=== PATIENT | male | born 1985 | race Caucasian/White ===

== ENCOUNTER → 2017-02-07 | Outpatient (CLI) | payer BC | LOC: HEART 5 12:52 | DX: R07.9 Chest pain, unspecified (principal); R00.0 Tachycardia, unspecified; F17.200 Nicotine dependence, unspecified, uncomplicated | CPT/HCPCS: 93306 ==

== ENCOUNTER 2021-04-22 14:27 | Emergency (ER) | payer MEDICAID ==
[2021-04-22 15:25] LABS: RED BLOOD COUNT 5.09 M/UL (4.20-5.50); WHITE BLOOD COUNT 10.6 K/UL (4.5-11.0)
[2021-04-22 16:32] LABS: BUN/CREATININE RATIO 9 (0-10)
== END 2021-04-22 17:05 | disposition home or self-care (01) ==
LOC: ER1 14:27
PROVIDERS: Emergency Medicine; Nurse Practitioner
DX: R53.83 Other fatigue (principal); R52 Pain, unspecified; F17.210 Nicotine dependence, cigarettes, uncomplicated; Z20.822 Contact with and (suspected) exposure to COVID-19; Z88.8 Allergy status to other drugs, medicaments and biological substances
CPT/HCPCS: 71045; 80053; 80307; 81001; 82550; 82553; 83605; 83874; 84484; 85025; 93005; 99284; U0002